=== PATIENT | female | born 1990 | race Caucasian/White ===

== ENCOUNTER 2023-04-08 12:50 | Emergency (ER) | payer OTHER ==
[~2023-04-08] VITALS: Ht 162.6 cm; Wt 59.0 kg
[2023-04-08 12:53] VITALS: O2SAT 97
== END 2023-04-08 13:23 | disposition home or self-care (01) ==
LOC: ER 12:50
DX: G43.909 Migraine, unspecified, not intractable, without status migrainosus (principal); R42 Dizziness and giddiness
CPT/HCPCS: 93005; A4663